=== PATIENT | male | born 1975 | race African-American/Black ===

== ENCOUNTER 2016-04-09 22:25 | Emergency (ER) | payer MEDICAID ==
[~2016-04-09 22:25] MED LIST: TRAM50 PO
[2016-04-09 22:26] VITALS: BP 145/89; PULSE 81; RESP 16; TEMP 98.1
--- NOTE | 2016-04-09 23:41 | PD ---
HPI Chief Complaint: Oral / Dental Pain or Problem Time Seen by Provider: 23:38 Travel History International Travel<30 days: No Contact w/Intl Traveler<30days: No Traveled to known affect area: No History of Present Illness HPI Patient comes in complaining of right-sided dental pain that began approximately 4 days ago. Patient states filling came out one tooth and the tooth started to chip away. Patient using [id number] medication with minimal relief of this. Patient states his appointment with the dentist on the of this month. Pain is worse with eating. Denies any fevers or difficulty swallowing. PFSH Past Medical History Anxiety: Yes Heart Rhythm Problems: No Cardiac Catheterization: No Cardiovascular Problems: No High Cholesterol: No Congestive Heart Failure: No Diabetes: No Diminished Hearing: No GERD: Yes Musculoskeletal: Yes (LEFT WRIST TENDONITIS) Immunizations Current: No Past Surgical History Coronary Artery Bypass Graft: No Social History Alcohol Use: No Tobacco Use: Yes (4 CIG PER DAY ) Substance Use: Yes (MARIJUANA OCCASSIONALLY) Allergies-Medications (Allergen,Severity, Reaction): Coded Allergies: Penicillin (Verified Allergy, Severe, Hives, 04/09/16) Seafood (Verified Allergy, Severe, HIVES, 04/09/16) Vistaril (Verified Allergy, Severe, UNKNOWN, 04/09/16) Reported Meds & Prescriptions Reported Meds & Active Scripts Active Diclofenac Sodium DR (Diclofenac Sodium) 75 Mg Tabdr 75 Mg PO Q12HR PRN Clindamycin (Clindamycin HCl) 150 Mg Cap 2 Tab PO Q6H 10 Days Ultram (Tramadol HCl) 50 Mg Tab 1 Tab PO Q6 PRN FOR PAIN Review of Systems Except as stated in HPI: all other systems reviewed are Neg Physical Exam Narrative GENERAL: Well-developed, well nourished, in no acute distress, and non-ill appearing. SKIN: Warm and dry. HEAD: Atraumatic. Normocephalic. EYES: Pupils equal and round. EOMI. No scleral icterus. No injection or drainage. ENT: No nasal bleeding or discharge. Mucous membranes pink and moist. Poor dentition with no visible or palpable abscess. Floor the mouth, submandibular, and submental are all soft to palpation. NECK: Trachea midline. No cervical lymphadenopathy. Supple. No nuclear rigidity. RESPIRATORY: No accessory muscle use. No respiratory distress. MUSCULOSKELETAL: No obvious deformities. No clubbing. No cyanosis. No edema. Full range of motion. NEUROLOGICAL: Awake and alert. No obvious cranial nerve deficits. Motor grossly within normal limits. Normal speech. PSYCHIATRIC: Appropriate mood and affect; insight and judgment normal. Data Data Last Documented VS Vital Signs Date Time Temp Pulse Resp B/P Pulse Ox O2 Delivery O2 Flow Rate FiO2 04/09/16 22:26 98.1 81 16 145/89 Room Air MDM Medical Decision Making Medical Screen Exam Complete: Yes Emergency Medical Condition: Yes Differential Diagnosis Dental infection, dental abscess, otalgia, other Narrative Course The patient presented with dental pain. There is no fever. There is no significant facial swelling or evidence of cellulitis. There is poor dentition but no evidence of drainable abscess at this time. There is no evidence of significant deep or invading abscess at this time. The patient will be placed on antibiotics and pain medication. The patient was instructed to follow up with a dentist. The patient was given the dental referral sheet. Warnings were discussed with the patient regarding worsening of infection. The patient is to return if pain worsens, develops progressive swelling or facial redness or fever. The patient agrees with plan. Dental block was performed with adequate analgesia. Patient in no obvious distress upon re-evaluation. Patient was asked if they wanted to speak to my attending, which the patient did not wish to do at this time. Any questions/concerns in reference to patient diagnosis/condition discussed and clarified prior to patient's discharge. Reinforced sheer importance of close follow up with patient's primary physician or primary care clinic and/or dentist. Instructed patient to return to ED immediately, if symptoms return/worsen. Pt showed understanding of above instructions. Further instructions and recommendations were detailed in discharge paperwork. Pt ambulated without difficulty out of ED at discharge. Procedures Procedure Narrative Verbal consent was obtained. Dental block was performed using 5% Marcaine with epi. Patient tolerated procedure well. There was no complications. Diagnosis Primary Impression: Dental infection Patient Instructions: Dental Abscess (ED), Dental Caries (DC), General Instructions Additional Instructions: Follow-up with your primary care physician and dentist as soon as possible. Rinse mouth with warm salt water gargles. Take all medication as prescribed. Return to the emergency department if symptoms get worse. Med/Other Pt SpecificInfo: Prescription(s) given Scripts Diclofenac Sodium DR 75 Mg Tabdr75 Mg PO Q12HR PRN (PAIN SCALE 1 TO 10) #20 TAB Ref 0 Prov:Calos Giang MD 04/09/16 Clindamycin 150 Mg Cap2 Tab PO Q6H 10 Days Ref 0 Prov:Calos Giang MD 04/09/16 Disposition: 01 DISCHARGE HOME Condition: Stable Kael Esquivel Apr 09, 2016 23:41
[2016-04-09] MEDS ORDERED: DICL75TA PO (23:42)
[2016-04-09] MEDS ORDERED: CLIN1CAP5 PO (23:42)
== END 2016-04-09 23:54 | disposition home or self-care (01) ==
LOC: NEPB 22:25
DX: K04.7 Periapical abscess without sinus (principal)
CPT/HCPCS: 64400

== ENCOUNTER 2016-06-16 04:51 | Emergency (ER) | payer MEDICAID ==
[~2016-06-16] VITALS: Ht 180.3 cm; Wt 67.0 kg
[~2016-06-16 04:51] MED LIST changes: +CLIN1CAP5 PO; +DICL75TA PO
[2016-06-16 04:52] VITALS: BP 118/68; PULSE 71; RESP 16; TEMP 97.7; O2SAT 99
[2016-06-16] MEDS ORDERED: CYCLOBENZAPRINE HCL 10 MG TAB PO ONE (05:30)
[2016-06-16] MEDS ORDERED: DEXAMETHASONE SOD PHOS 4 MG/ML VIAL IM ONE (05:30)
--- NOTE | 2016-06-16 05:36 | PD ---
HPI Chief Complaint: Back/ Neck Pain or Injury Time Seen by Provider: 05:25 Travel History International Travel<30 days: No Contact w/Intl Traveler<30days: No Traveled to known affect area: No History of Present Illness HPI Patient comes in complaining of right-sided neck pain that he awoke with 4 days ago. Patient states 5 days ago he was outside playing with his kids when he hit the right side of his head on a tree. He denies any loss of consciousness, headache, nausea, dizziness, or neck pain that time. Patient states when he awoke next day he started having the aching pains on the right side of his neck that is worse with certain movement. Patient states he's been using over-the- counter pain medication as well as alternate between heat and ice and trying to stretch his neck. Patient states yesterday while doing stretches he felt a sharp pain shooting down his right upper extremity. Patient states pain is worse with certain movement of his neck and right upper extremity. Patient denies any other known trauma. Patient reports he has a history of neck and back problems, but recently switched primary care doctor secondary to insurance changing. Patient denies any fevers, IV drug use, numbness or tingling anywhere , fevers, chest pain, shortness of breath, or loss of bowel or bladder. PFSH Past Medical History Anxiety: Yes Heart Rhythm Problems: No Cardiac Catheterization: No Cardiovascular Problems: No High Cholesterol: No Congestive Heart Failure: No Diabetes: No Diminished Hearing: No GERD: Yes Musculoskeletal: Yes (LEFT WRIST TENDONITIS) Immunizations Current: No Past Surgical History Coronary Artery Bypass Graft: No Social History Alcohol Use: No Tobacco Use: Yes (4 CIG PER DAY ) Substance Use: Yes (MARIJUANA OCCASSIONALLY) Allergies-Medications (Allergen,Severity, Reaction): Coded Allergies: Penicillin (Verified Allergy, Severe, Hives, 06/16/16) Seafood (Verified Allergy, Severe, HIVES, 06/16/16) Vistaril (Verified Allergy, Severe, UNKNOWN, 06/16/16) Reported Meds & Prescriptions Reported Meds & Active Scripts Active Medrol Dosepak (Methylprednisolone) 4 Mg Dspk 4 Mg PO DIRECTED Per Pharmacist direction Robaxin (Methocarbamol) 500 Mg Tab 500 Mg PO Q8HR PRN Diclofenac Sodium DR (Diclofenac Sodium) 75 Mg Tabdr 75 Mg PO Q12HR PRN Clindamycin (Clindamycin HCl) 150 Mg Cap 2 Tab PO Q6H 10 Days Ultram (Tramadol HCl) 50 Mg Tab 1 Tab PO Q6 PRN FOR PAIN Review of Systems Except as stated in HPI: all other systems reviewed are Neg Physical Exam Narrative GENERAL: Well-developed, well nourished, in no acute distress, and non-ill appearing. SKIN: Warm and dry. HEAD: Atraumatic. Normocephalic. EYES: Pupils equal and round. EOMI. No scleral icterus. No injection or drainage. ENT: No nasal bleeding or discharge. Mucous membranes pink and moist. NECK: Trachea midline. No tenderness or crepitus over the last cervical spine. Patient reports tenderness to palpation over right trapezius. Supple. No nuclear rigidity. CARDIOVASCULAR: Radial pulses 2+ contact on equal bilaterally. Capillary refill less than 2 seconds. RESPIRATORY: No accessory muscle use. No respiratory distress. MUSCULOSKELETAL: No obvious deformities. No clubbing. No cyanosis. No edema. Full range of motion. Shoulder:FROM equal BL with passive flexion, extension, Abduction, Adduction, internal/external rotation, and pronation/supination. Sensation equal BL deltoid muscles. Pulses equal BL distal to injury. Capillary refill less than 2 seconds distal to injury and equal BL. FROM distal to injury and equal BL. Strength distal to injury equal BL. NV intact distal to injury equal BL. Flexion and extension of thumb equal BL. Equal strength and movement with abduction/adductions of BL fingers. Philanthropy Officer strength equal BL. NEUROLOGICAL: Awake and alert. No obvious cranial nerve deficits. Motor grossly within normal limits. Normal speech. PSYCHIATRIC: Appropriate mood and affect; insight and judgment normal. Data Data Last Documented VS Vital Signs Date Time Temp Pulse Resp B/P Pulse Ox O2 Delivery O2 Flow Rate FiO2 06/16/16 04:52 97.7 71 16 118/68 99 Room Air Orders Dexamethasone Inj (Decadron Inj) (06/16/16 05:30) Cyclobenzaprine (Flexeril) (06/16/16 05:30) MDM Medical Decision Making Medical Screen Exam Complete: Yes Emergency Medical Condition: Yes Differential Diagnosis Fracture, strain, radiculopathy, spasm, other Narrative Course The patient presented complaining of neck pain with radiation of pain down the arm. There was delay in onset of pain without distracting injury clinically suggesting musculoskeletal strain and no clinical evidence to support fracture. There is no significant midline c-spine pain or tenderness and no significant distracting injury to suggest associated cervical spine injury. Patient was offered radiological evaluation, but the patient wishes to wait to follow up with primary care if symptoms continue. There was no evidence to support atypical cardiac/angina as an etiology. There is also no evidence to suggest vascular pathology such as TAA or carotid dissection. No fevers or other evidence to suspect infectious processes, abscess, osteomyelitis etc. The patients neurological exam is normal with normal motor and sensory. There is no motor deficits reported or found, and no bowel or bladder incontinence or retention. I suspect the pain is mechanical in nature with dermatomal distribution/ radiculopathy. Clinical suspicion, plan of care and management was discussed with the patient. The patient was instructed to follow up with their health care provider. The patient was also instructed to return if the pain worsened, changed, or developed weakness or bowel or bladder trouble. The patient agreed with plan. Patient in no obvious distress upon re-evaluation. Patient was asked if they wanted to speak to my attending, which the patient did not wish to do at this time. Any questions/concerns in reference to patient diagnosis/condition discussed and clarified prior to patient's discharge. Reinforced sheer importance of close follow up with patient's primary physician or primary care clinic. Instructed patient to return to ED immediately, if symptoms return/ worsen. Pt showed understanding of above instructions. Further instructions and recommendations were detailed in discharge paperwork. Pt ambulated without difficulty out of ED at discharge. Diagnosis Primary Impression: Cervical radiculopathy Patient Instructions: Cervical Radiculopathy (ED), General Instructions Additional Instructions: Follow-up with your primary care physician in 3-5 days for reevaluation. Take all medication as prescribed. Return to the emergency department if symptoms get worse. Med/Other Pt SpecificInfo: Prescription(s) given Scripts Methylprednisolone Dosepak (Medrol Dosepak)4 Mg Dspk4 Mg PO DIRECTED #1 DSPK Ref 0 Per Pharmacist direction Prov:Rakesh Green MD 06/16/16 Methocarbamol (Robaxin)500 Mg [id number] Mg PO Q8HR PRN (MUSCLE PAIN) #15 TAB Ref 0 Prov:Rakesh Green MD 06/16/16 Disposition: 01 DISCHARGE HOME Condition: Stable Eimly Esquivelew D PA Jun 16, 2016 05:36
[2016-06-16] MEDS ORDERED: MEDR4PAK PO (05:37)
[2016-06-16] MEDS ORDERED: ROBA500T PO (05:37)
== END 2016-06-16 05:46 | disposition home or self-care (01) ==
LOC: NEPB 04:51
DX: M54.12 Radiculopathy, cervical region (principal); F17.210 Nicotine dependence, cigarettes, uncomplicated; W22.09XA Striking against other stationary object, initial encounter; Y99.8 Other external cause status
CPT/HCPCS: 96372; 99283; J1100